=== PATIENT | male | born 1975 | race Two or more races ===

== ENCOUNTER 2024-12-10 09:04 | Day surgery (SDC) | payer MEDICAID, SELFPAY ==
--- NOTE | 2024-12-09 06:32 | EKG_ITS ---
[facility] Test Date: 2024-12-09 Pat Name: LEWIS BECK Department: Room: - Gender: Female [employer] Tender: GINGER : 1975 Requested By: Amanad Rea Order Number: [id number] Reading MD: Amanda Rea Measurements Intervals [place] Rate: 57 P: 54 W[place]: 172 QRS: 22 QRSD: 89 T: 19 QT: 384 QTc: 376 Interpretive Statements SINUS BRADYCARDIA No previous ECG available for comparison /store/S0/[id number]/[id number].pdf
[2024-12-09 09:27] VITALS: BMI 30.4
[2024-12-09 10:25] LABS: Basophils # (Auto) 0.1 Thou/mm3 (0.0-0.2); Basophils % (Auto) 1 % (0-2.5); Eosinophils # (Auto) 0.1 Thou/mm3 (0.0-0.5); Eosinophils % (Auto) 2 % (0-10); Hematocrit 47.8 % (36.0-46.0); Hemoglobin 17.0 g/dL (12.0-16.0); Immature Granulocytes Auto 0.11 Thou/mm3 (0.00-0.00); Lymphocytes # (Auto) 1.7 Thou/mm3 (1.0-4.8); Lymphocytes % (Auto) 26 % (10-50); Mean Corpuscular HGB Conc 35.6 g/dl (31.0-37.0); Mean Corpuscular Hemoglobin 30.8 pg (25.0-35.0); Mean Corpuscular Volume 87 fL (80-100); Monocytes # (Auto) 0.5 Thou/mm3 (0.0-0.8); Monocytes % (Auto) 7 % (0-12); Neutrophils # (Auto) 4.1 Thou/mm3 (1.8-7.7); Neutrophils % (Auto) 62 % (37-80); Nucleated Red Blood Cell # 0.00 Thou/mm3 (0.00-0.00); Nucleated Red Blood Cell % 0 /100 WBC (0); Platelet Count 195 Thou/mm3 (140-440); RDW Standard Deviation 41.4 fL (36.4-46.3); Red Blood Count 5.52 Miln/mm3 (4.00-5.20); White Blood Count 6.6 Thou/mm3 (3.6-11.0)
[2024-12-09 10:36] LABS: Anion Gap 11 (7-16); BUN/Creatinine Ratio 14 Ratio (12-20); Blood Urea Nitrogen 15 mg/dL (9-23); Calcium 10.3 mg/dL (8.3-10.6); Carbon Dioxide 25.5 mMol/L (20.0-31.0); Chloride 104 mMol/L (98-107); Creatinine (Component) 1.1 mg/dL (0.6-1.3); Estimated Creatinine Clearance 64.1 mL/min (>60); Glucose 108 mg/dL (74-106); Osmolality,Calculated 281 (275-295); Potassium 4.2 mMol/L (3.4-5.1); Sodium 140 mMol/L (136-145); eGFR > 60 See Note
[2024-12-10] VITALS (8 sets, daily range): BP systolic 101–137; BP diastolic 71–95; PULSE 65–85; RESP 15–22; TEMP 36.5–36.8; O2SAT 89–99; BMI 29.7
--- NOTE | 2024-12-10 12:06 | SUR.PHASEI ---
pt arrived to PACU via gurney with oral airway present, pt obstructing- Dr Gillette performing chin lift and O2 saturations improving, dressing to abdomen clean, dry, and intact, report from Pablo ALANIZ and Dr Glilette
--- NOTE | 2024-12-10 12:07 | PD.SUROPNT ---
Date of Procedure 12/10/24 Pre Op Diagnosis Incarcerated umbilical hernia Post Op Diagnosis Incarcerated umbilical hernia Procedure Primary repair of incarcerated umbilical hernia Findings An approximately 7 mm umbilical hernia defect with incarcerated preperitoneal fat and omentum Procedure Description Patient brought into the operating room in supine position. After administration of general tracheal anesthesia, patient's abdomen prepped and draped in standard surgical manner. After administration of local anesthesia 3 cm semicircular incision was made above the umbilicus and dissection was deepened into soft tissue. The umbilicus was detached from anterior abdominal fascia. The hernia sac was circumferentially dissected out surrounding tissue. Hernia sac was opened and the contents were incarcerated omentum and preperitoneal fat. The omentum was reduced. The preperitoneal fat along with the hernia sac were excised. The fascial defect was approximately 7 mm in diameter. The defect was primarily closed with 0 Prolene suture. Umbilicus was reattached into anterior abdominal fascia. Soft tissue reapproximated with interrupted sutures using 2-0 Vicryl. Incision closed with 4-0 Monocryl in subcuticular fashion. Dermabond applied. Patient tolerated procedure well. He was extubated, breathing spontaneously without difficulty and was transferred to postanesthesia care in stable condition. Instruments, needles and sponge counts were reported to be correct x 2. Anesthesia GETA and local Pathology / specimen Other (Hernia sac and contents) Estimated Blood Loss 2 Condition Stable Disposition PACU Surgeon Amanda Rea MD Surgical Staff Operation Date: 12/10/24 11:45 Case Staff Anesthesiologist: Taz Gillette RN First Assistant: Anaya Caruso
--- NOTE | 2024-12-10 12:11 | SUR.PHASEI ---
respirations even and unlabored with airway still present
--- NOTE | 2024-12-10 12:32 | SUR.PHASEI ---
pt awake, alert, able to follow commands, breathing unlabored, dressing to abdomen clean, dry, and intact, VS stable, report to Renetta Mcgee RN
--- NOTE | 2024-12-10 12:32 | SUR.PHASEI ---
1232 report received from Renetta Smith RN patient sitting up in bed, awake and alert, breathing unlabored, vital signs stable, denies pain, dressing intact to umbilicus; dermabond, no bleeding noted, denies nausea
--- NOTE | 2024-12-10 13:20 | SUR.PHASEII ---
1320 Patient meets discharge criteria from recovery, awake and alert, breathing unlabored, vital signs stable, denies pain, dressing intact; no bleeding noted, drinking water; denies nausea, patient assisted with dressing into his clothing by his , discharge instructions given with the assistance of the telephone interpreter and translator Elizabeth ID# [id number] to patient and his , signed discharge instructions. Patient given all his belongings prior to discharge, transported via wheelchair and left in a private vehicle.
== END 2024-12-10 13:20 | disposition home or self-care (01) ==
PROVIDERS: PCP Family Medicine; Referring Provider Surgery; Visit Provider Surgery
PROC: (CPT 49592; principal; 2024-12-10 11:30)
DX: K42.0 Umbilical hernia with obstruction, without gangrene (principal); Z01.810 Encounter for preprocedural cardiovascular examination
CPT/HCPCS: 49592; 36415; 80048; 85025; 93005; A4217; A4649; J0131; J2250; J2704; J3010; J3490